=== PATIENT | female | born 1985 | race African-American/Black ===

== ENCOUNTER 2016-09-08 08:57 | Emergency (ER) | payer OTHER ==
[~2016-09-08] VITALS: Ht 152.4 cm; Wt 69.0 kg
[~2016-09-08 08:57] MED LIST: AUGMENTIN 875875 MG PO; BACTRIM DS TAB1 EACH PO; DERMOPLAST SPRA56 ML TOP; HYDROCORTISONE30 G9 RECTAL; IBUPROFEN 800800 M1 PO; LANOLIN56 GM TOP; MOBIC15 MG PO; NORCO 5-325 TA1 EACH PO; PRENATAL; TUCKS1 EAC1 TOP; TYLENOL EXTRA500 MG PO; ZOFRAN ODT4 MG PO; ZPAK PO
[2016-09-08 09:10] VITALS: BP 123/82
[2016-10-20] MEDS ORDERED: MEDROXYPROGESTERONE IM (08:31)
== END 2016-09-08 10:34 | disposition home or self-care (01) ==
LOC: ER 08:57
DX: J03.90 Acute tonsillitis, unspecified (principal); Z88.6 Allergy status to analgesic agent; F17.210 Nicotine dependence, cigarettes, uncomplicated; F10.99 Alcohol use, unspecified with unspecified alcohol-induced disorder

== ENCOUNTER 2017-09-22 14:03 | Emergency (ER) | payer OTHER ==
[~2017-09-22] VITALS: Ht 152.4 cm; Wt 79.8 kg
[~2017-09-22 14:03] MED LIST changes: +DEXAMETHASONE4 MG PO; +MEDROXYPROGESTERONE IM
[2017-09-22] MEDS ORDERED: AMOXICILLIN 50500 MG PO (14:19)
== END 2017-09-22 14:32 | disposition home or self-care (01) ==
LOC: ER 14:03
DX: K04.7 Periapical abscess without sinus (principal); F17.210 Nicotine dependence, cigarettes, uncomplicated; Z88.5 Allergy status to narcotic agent

== ENCOUNTER 2017-11-02 22:26 | Emergency (ER) | payer OTHER ==
[~2017-11-02] VITALS: Ht 132.1 cm; Wt 80.7 kg
[~2017-11-02 22:26] MED LIST changes: +AMOXICILLIN 50500 MG PO
[2017-11-02 23:16] LABS: URINE BILIRUBIN NEGATIVE (Negative); URINE BLOOD NEGATIVE (Negative); URINE CLARITY SL CLOUDY; URINE COLOR YELLOW; URINE GLUCOSE-RANDOM* NEGATIVE (Negative); URINE KETONES TRACE (Negative); URINE LEUKOCYTES-REFLEX NEGATIVE (Negative); URINE NITRITE-REFLEX NEGATIVE (Negative); URINE PROTEIN (DIPSTICK) NEGATIVE (Negative); URINE SPECIFIC GRAVITY >= 1.030 (1.005-1.035); URINE UROBILINOGEN 0.2 E.U./dl (0.2-1.0)
[2017-11-02 23:16] LABS: ABSOLUTE NEUTROPHILS 2.5 thou/uL (1.4-8.2); BASOPHILS 0.7 % (0.0-2.0); EOSINOPHILS 2.1 % (0.0-3.0); HEMOGLOBIN 14.4 gm/dL (12.0-15.0); LYMPHOCYTES 50.7 % (24.0-44.0); MCH 32.8 pg (26.0-34.0); MCHC 34.4 g/dL (28.0-37.0); MCV 95.5 fL (80.0-100.0); MONOCYTES 6.3 % (1.0-8.0); PLATELET COUNT 233 thou/uL (150-400); POLYS 40.2 % (36.0-66.0); RDW 14.1 % (10.5-14.5); WBC 6.2 thou/uL (4.0-11.0)
[2017-11-02 23:20] LABS: CALCIUM 8.9 mg/dL (8.5-10.1); CREATININE 0.9 mg/dL (0.6-1.0); POTASSIUM 3.7 mmol/L (3.5-5.1)
[2017-11-02 23:26] LABS: ALBUMIN 3.9 g/dL (3.4-5.0); TOTAL BILIRUBIN 0.2 mg/dL (<0.1-1.0); TOTAL PROTEIN 7.3 g/dL (6.4-8.2)
[2017-11-03] MEDS ORDERED: NAPROSYN500 MG PO (00:59)
[2017-11-03] MEDS ORDERED: TRAMADOL 50 MG50 MG PO (00:59)
== END 2017-11-03 01:24 | disposition home or self-care (01) ==
LOC: ER 22:26
PROVIDERS: Emergency Medicine
DX: R10.31 Right lower quadrant pain (principal); R10.32 Left lower quadrant pain; F17.210 Nicotine dependence, cigarettes, uncomplicated; Z88.5 Allergy status to narcotic agent

== ENCOUNTER 2018-05-31 08:22 | Emergency (ER) | payer OTHER ==
[~2018-05-31] VITALS: Ht 149.9 cm; Wt 84.4 kg
[~2018-05-31 08:22] MED LIST changes: +NAPROSYN500 MG PO; +TRAMADOL 50 MG50 MG PO
[2018-05-31 09:16] VITALS: BP 121/86
== END 2018-05-31 09:17 | disposition home or self-care (01) ==
LOC: ER 08:22
DX: J02.8 Acute pharyngitis due to other specified organisms (principal); B96.89 Other specified bacterial agents as the cause of diseases classified elsewhere; F17.210 Nicotine dependence, cigarettes, uncomplicated; Z88.8 Allergy status to other drugs, medicaments and biological substances; Z98.890 Other specified postprocedural states

== ENCOUNTER 2018-08-14 21:55 | Emergency (ER) | payer OTHER ==
[~2018-08-14] VITALS: Ht 149.9 cm; Wt 81.7 kg
[2018-08-14] MEDS ORDERED: KEFLEX500 M1 PO (22:45)
[2018-08-14] MEDS ORDERED: DIFLUCAN150 MG PO (22:51)
[2018-08-14 23:01] VITALS: BP 146/102
== END 2018-08-14 23:02 | disposition home or self-care (01) ==
LOC: ER 21:55
DX: L03.317 Cellulitis of buttock (principal); F17.210 Nicotine dependence, cigarettes, uncomplicated; Z98.890 Other specified postprocedural states

== ENCOUNTER 2018-10-21 09:44 | Emergency (ER) | payer OTHER ==
[~2018-10-21] VITALS: Ht 152.4 cm; Wt 86.2 kg
[~2018-10-21 09:44] MED LIST changes: +DIFLUCAN150 MG PO; +KEFLEX500 M1 PO
== END 2018-10-21 11:28 | disposition home or self-care (01) ==
LOC: ER 09:44
DX: J06.9 Acute upper respiratory infection, unspecified (principal); F17.210 Nicotine dependence, cigarettes, uncomplicated; Z88.8 Allergy status to other drugs, medicaments and biological substances; Z98.890 Other specified postprocedural states

== ENCOUNTER 2018-10-30 11:23 | Emergency (ER) | payer OTHER ==
[~2018-10-30] VITALS: Ht 152.4 cm; Wt 81.7 kg
[2018-10-30] MEDS ORDERED: POLYMYXIN B/TMP10 ML INTRAOCULR (12:43)
[2018-10-30 13:00] VITALS: BP 151/104
== END 2018-10-30 13:01 | disposition home or self-care (01) ==
LOC: ER 11:23
DX: H10.31 Unspecified acute conjunctivitis, right eye (principal); F17.210 Nicotine dependence, cigarettes, uncomplicated; Z98.890 Other specified postprocedural states

== ENCOUNTER 2018-11-12 08:43 | Emergency (ER) | payer OTHER ==
[~2018-11-12] VITALS: Ht 152.4 cm; Wt 80.7 kg
[~2018-11-12 08:43] MED LIST changes: +POLYMYXIN B/TMP10 ML INTRAOCULR
[2018-11-12 10:19] VITALS: BP 151/100
== END 2018-11-12 10:10 | disposition home or self-care (01) ==
LOC: ER 08:43
DX: J02.9 Acute pharyngitis, unspecified (principal); F17.210 Nicotine dependence, cigarettes, uncomplicated; Z88.8 Allergy status to other drugs, medicaments and biological substances

== ENCOUNTER 2018-11-17 05:11 | Emergency (ER) | payer OTHER ==
[~2018-11-17] VITALS: Ht 152.4 cm; Wt 80.7 kg
[2018-11-17] MEDS ORDERED: GUAIFEN-CODEINE10 ML PO (05:52)
[2018-11-17 06:03] VITALS: BP 148/112
== END 2018-11-17 06:03 | disposition home or self-care (01) ==
LOC: ER 05:11
DX: J02.8 Acute pharyngitis due to other specified organisms (principal); B97.89 Other viral agents as the cause of diseases classified elsewhere; J06.9 Acute upper respiratory infection, unspecified; F17.210 Nicotine dependence, cigarettes, uncomplicated; Z88.5 Allergy status to narcotic agent; Z98.890 Other specified postprocedural states

== ENCOUNTER 2019-01-19 00:02 | Emergency (ER) | payer OTHER ==
[~2019-01-19] VITALS: Ht 149.9 cm; Wt 86.2 kg
[~2019-01-19 00:02] MED LIST changes: +GUAIFEN-CODEINE10 ML PO
[2019-01-19 00:04] VITALS: BP 140/91
[2019-01-19 00:23] LABS: URINE BILIRUBIN NEGATIVE (Negative); URINE BLOOD 3+ (Negative); URINE CLARITY SL CLOUDY; URINE COLOR YELLOW; URINE GLUCOSE-RANDOM* NEGATIVE (Negative); URINE KETONES NEGATIVE (Negative); URINE NITRITE-REFLEX NEGATIVE (Negative); URINE PROTEIN (DIPSTICK) 2+ (Negative); URINE SPECIFIC GRAVITY <= 1.005 (1.005-1.035); URINE UROBILINOGEN 0.2 E.U./dl (0.2-1.0)
[2019-01-19 00:24] LABS: URINE LEUKOCYTES-REFLEX 3+ (Negative)
[2019-01-19 00:37] LABS: CASTS None Seen /LPF (None Seen); MUCUS 0-3 Light strn/LPF (None Seen); URINE WBC-REFLEX >25 Many /HPF (0-5)
[2019-01-19 00:40] LABS: BACTERIA-REFLEX 1-9 Few /HPF (None Seen); CRYSTALS None Seen /LPF (None Seen); SQUAMOUS 0-3 Few /LPF (0-3); URINE RBC 3-10 Few /HPF (0-2)
[2019-01-19] MEDS ORDERED: KEFLEX500 M1 PO (00:41)
[2019-01-19] MEDS ORDERED: PYRIDIUM200 MG PO (00:41)
[2019-01-19] MEDS ORDERED: DIFLUCAN150 MG PO (00:51)
== END 2019-01-19 00:49 ==
LOC: ER 00:02
PROVIDERS: Emergency Medicine
DX: N39.0 Urinary tract infection, site not specified (principal); F17.210 Nicotine dependence, cigarettes, uncomplicated

== ENCOUNTER 2019-06-11 11:55 | Emergency (ER) | payer OTHER ==
[~2019-06-11] VITALS: Ht 152.4 cm; Wt 81.7 kg
[~2019-06-11 11:55] MED LIST changes: +PYRIDIUM200 MG PO
[2019-06-11] MEDS ORDERED: TRAMADOL 50 MG50 MG PO (15:01)
[2019-06-11 15:29] VITALS: BP 135/89
== END 2019-06-11 17:37 | disposition home or self-care (01) ==
LOC: ER 11:55
DX: S92.152A Displaced avulsion fracture (chip fracture) of left talus, initial encounter for closed fracture (principal); S82.62XA Displaced fracture of lateral malleolus of left fibula, initial encounter for closed fracture; F17.210 Nicotine dependence, cigarettes, uncomplicated; Z98.890 Other specified postprocedural states; Z88.5 Allergy status to narcotic agent; W10.9XXA Fall (on) (from) unspecified stairs and steps, initial encounter; Y93.01 Activity, walking, marching and hiking; Y92.89 Other specified places as the place of occurrence of the external cause; Y99.8 Other external cause status

== ENCOUNTER 2020-02-20 08:09 | Emergency (ER) | payer OTHER ==
[~2020-02-20] VITALS: Ht 152.4 cm; Wt 77.1 kg
[2020-02-20 08:29] VITALS: BP 120/82
[2020-02-20 08:32] LABS: URINE BILIRUBIN NEGATIVE (Negative); URINE BLOOD 3+ (Negative); URINE CLARITY CLOUDY; URINE COLOR YELLOW; URINE GLUCOSE-RANDOM* NEGATIVE (Negative); URINE KETONES NEGATIVE (Negative); URINE NITRITE-REFLEX NEGATIVE (Negative); URINE PROTEIN (DIPSTICK) 2+ (Negative); URINE SPECIFIC GRAVITY 1.025 (1.005-1.035); URINE UROBILINOGEN 0.2 E.U./dl (0.2-1.0)
[2020-02-20 08:34] LABS: URINE LEUKOCYTES-REFLEX 3+ (Negative)
[2020-02-20 08:48] LABS: URINE RBC >20 Many /HPF (0-2); URINE WBC-REFLEX >25 Many /HPF (0-5)
[2020-02-20 08:49] LABS: BACTERIA-REFLEX >30 Many /HPF (None Seen); CASTS None Seen /LPF (None Seen); CRYSTALS None Seen /LPF (None Seen); SQUAMOUS 4-10 Moderate /LPF (0-3)
[2020-02-20 08:50] LABS: WBC CLUMPS Moderate (None Seen)
[2020-02-20] MEDS ORDERED: DIFLUCAN150 MG PO (09:17)
[2020-02-20] MEDS ORDERED: PYRIDIUM200 MG PO (09:17)
[2020-02-20] MEDS ORDERED: KEFLEX500 M1 PO (09:17)
== END 2020-02-20 09:32 | disposition home or self-care (01) ==
LOC: ER 08:09
PROVIDERS: Emergency Medicine
DX: N39.0 Urinary tract infection, site not specified (principal); F17.210 Nicotine dependence, cigarettes, uncomplicated; Z88.5 Allergy status to narcotic agent; Z98.890 Other specified postprocedural states

== ENCOUNTER 2020-03-15 13:50 | Emergency (ER) | payer OTHER ==
[~2020-03-15] VITALS: Ht 152.4 cm; Wt 84.4 kg
[2020-03-15 14:04] LABS: URINE BILIRUBIN NEGATIVE (Negative); URINE BLOOD 3+ (Negative); URINE CLARITY CLOUDY; URINE COLOR RED; URINE GLUCOSE-RANDOM* NEGATIVE (Negative); URINE KETONES NEGATIVE (Negative); URINE PROTEIN (DIPSTICK) 3+ (Negative); URINE SPECIFIC GRAVITY >= 1.030 (1.005-1.035)
[2020-03-15 14:11] LABS: URINE LEUKOCYTES-REFLEX 1+ (Negative); URINE NITRITE-REFLEX POSITIVE (Negative)
[2020-03-15 14:17] LABS: URINE RBC >20 Many /HPF (0-2)
[2020-03-15 14:18] LABS: BACTERIA-REFLEX 1-9 Few /HPF (None Seen); CASTS None Seen /LPF (None Seen); CRYSTALS None Seen /LPF (None Seen); SQUAMOUS 0-3 Few /LPF (0-3); YEAST-REFLEX Present (None Seen)
[2020-03-15] MEDS ORDERED: PHENAZOPYRIDIN200 M2 PO (15:27)
[2020-03-15] MEDS ORDERED: BACTRIM DS TAB1 EACH PO (15:27)
[2020-03-15 16:11] VITALS: BP 136/87
== END 2020-03-15 16:14 | disposition home or self-care (01) ==
LOC: ER 13:50
PROVIDERS: Emergency Medicine
DX: N39.0 Urinary tract infection, site not specified (principal); F17.210 Nicotine dependence, cigarettes, uncomplicated; Z98.890 Other specified postprocedural states; Z79.899 Other long term (current) drug therapy; Z79.2 Long term (current) use of antibiotics

== ENCOUNTER 2020-12-13 10:37 | Emergency (ER) | payer OTHER ==
[~2020-12-13] VITALS: Ht 152.4 cm; Wt 80.7 kg
[~2020-12-13 10:37] MED LIST changes: +PHENAZOPYRIDIN200 M2 PO
[2020-12-13 12:39] VITALS: BP 129/95
== END 2020-12-13 12:40 | disposition home or self-care (01) ==
LOC: ER 10:37
DX: S81.811A Laceration without foreign body, right lower leg, initial encounter (principal); F17.210 Nicotine dependence, cigarettes, uncomplicated; Z98.890 Other specified postprocedural states; W25.XXXA Contact with sharp glass, initial encounter; Y93.H3 Activity, building and construction; Y92.59 Other trade areas as the place of occurrence of the external cause; Y99.9 Unspecified external cause status

== ENCOUNTER 2020-12-25 09:59 | Emergency (ER) | payer OTHER ==
[~2020-12-25] VITALS: Ht 152.4 cm; Wt 79.4 kg
[2020-12-25 10:10] VITALS: BP 128/84
[2020-12-25] MEDS ORDERED: CEPHALEXIN500 MG PO (10:39)
[2020-12-25] MEDS ORDERED: DIFLUCAN150 MG PO (10:45)
== END 2020-12-25 10:48 | disposition home or self-care (01) ==
LOC: ER 09:59
DX: S81.811D Laceration without foreign body, right lower leg, subsequent encounter (principal); L03.115 Cellulitis of right lower limb; F17.210 Nicotine dependence, cigarettes, uncomplicated; Z88.5 Allergy status to narcotic agent; W25.XXXD Contact with sharp glass, subsequent encounter

== ENCOUNTER 2021-01-12 21:59 | Emergency (ER) | payer OTHER ==
[~2021-01-12] VITALS: Ht 167.6 cm; Wt 72.6 kg
[~2021-01-12 21:59] MED LIST changes: +CEPHALEXIN500 MG PO
[2021-01-12 22:18] VITALS: BP 139/99
== END 2021-01-12 23:25 | disposition home or self-care (01) ==
LOC: ER 21:59
DX: U07.1 COVID-19 (principal); F17.210 Nicotine dependence, cigarettes, uncomplicated; Z88.5 Allergy status to narcotic agent; Z98.890 Other specified postprocedural states

== ENCOUNTER 2021-06-14 10:15 | Emergency (ER) | payer OTHER ==
[~2021-06-14] VITALS: Ht 152.4 cm; Wt 79.4 kg
[2021-06-14 10:20] VITALS: BP 148/95
[2021-06-14] MEDS ORDERED: MOBIC7.5 MG PO (11:38)
== END 2021-06-14 11:38 | disposition home or self-care (01) ==
LOC: ER 10:15
DX: S49.91XA Unspecified injury of right shoulder and upper arm, initial encounter (principal); F17.210 Nicotine dependence, cigarettes, uncomplicated; Z98.890 Other specified postprocedural states; Z88.5 Allergy status to narcotic agent; X99.8XXA Assault by other sharp object, initial encounter; Y93.89 Activity, other specified; Y92.89 Other specified places as the place of occurrence of the external cause; Y99.8 Other external cause status